=== PATIENT | male | born 1980 | race Native Hawaiian/Other Pacific Islander ===

== ENCOUNTER 2020-12-28 15:06 | Outpatient (CLI) | payer OTHER ==
[2020-12-28 15:44] LABS: PLATELET COUNT 386 K/uL (142-355)
[2020-12-28 16:02] LABS: POTASSIUM 4.6 mmol/L (3.6-5.2)
== END 2020-12-28 21:41 | disposition home or self-care (01) ==
LOC: LAB 15:06
PROVIDERS: ATTEND Nurse Practitioner Family
DX: Z00.00 Encounter for general adult medical examination without abnormal findings (principal); M25.50 Pain in unspecified joint; I10 Essential (primary) hypertension; J45.909 Unspecified asthma, uncomplicated; R53.83 Other fatigue; R63.5 Abnormal weight gain; L40.9 Psoriasis, unspecified; E07.89 Other specified disorders of thyroid; Z13.220 Encounter for screening for lipoid disorders; Z79.899 Other long term (current) drug therapy
CPT/HCPCS: 80053; 80061; 82306; 82607; 83036; 84439; 84443; 85027

== ENCOUNTER 2021-10-29 09:09 | Outpatient (CLI) | payer BC, OTHER ==
[~2021-10-29] VITALS: Ht 188 cm; Wt 131.5 kg
== END 2021-10-29 23:06 | disposition home or self-care (01) ==
LOC: INF 09:09
PROVIDERS: ATTEND Family Medicine
DX: U07.1 COVID-19 (principal); Z23 Encounter for immunization
CPT/HCPCS: 96365; Q0247